=== PATIENT | female | born 1960 | race Caucasian/White ===

== ENCOUNTER 2019-06-29 09:22 | Emergency (ER) | payer OTHER ==
--- OUTSIDE RECORDS SUMMARY | 2019-06-29 09:49 | XMS REPORT | Continuity of Care Document ---
:1960 External Reference #:[id number] Author Name CRISTIAN Black (transmitted by agent of provider Rajinder Valencia) Address [address] [place] [address] Care Team Providers Name Role Phone Lyle Latham MD - Orthopaedic Care Team Information [facility] Rona Sodo RPA - Medical Care Team Information [employer] [phone] Jennifer Hong MD - Care Team Information [employer] [phone] Ophthalmology Problems Active Problems Provider Date Anxiety CRISTIAN Black Onset: 01/21/2019 History of malignant neoplasm of lung CRISTIAN Black Onset: 01/21/2019 Note: stage 4 Kidney stone CRISTIAN Black Onset: 04/30/2019 Note: (L) nonobstructing [CT 04/2019] Social History Type Date Description Comments Sex Unknown ETOH Use Denies alcohol use Tobacco Use Start: Unknown Light tobacco smoker (10 or fewer cigarettes/day) Recreational Drug Use Denies Drug Use Smoking Status Reviewed: 06/15/19 Light tobacco smoker (10 or fewer cigarettes/day) Exercise Type/Frequency Exercises rarely Allergies, Adverse Reactions, Alerts Active Allergies Reaction Severity Comments Date Alimta thrombocytopenia 04/01/2019 Amlodipine edema 04/01/2019 Inactive Allergies NKDA 04/01/2019 Medications Active Medications SIG Qnty Indications Ordering Date Provider Robitussin Cough & 10 ml by mouth 355ml Gera 06/15/2019 Chest Congestion DM every 4 hours as MD Iva Adult needed 20-400mg/20ML Liquid Amoxicillin/Clavulanat 1 Tab PO Q 12 H 20tabs J20.9 Gera 06/15/2019 e Potassium With Food MD Iva 875-125mg Tablets Loratadine 1 by mouth every 90tabs Gera 04/27/2019 10mg Tablets day for MD Iva cough/congestion Fluticasone Propionate 2 sprays to each 9.900ml J01.90 Gera 02/20/2019 Nasal [place] nare daily MD Iva 50mcg/Act Suspension Ondansetron HCL 1 tab by mouth 30tabs Gera 02/20/2019 8mg three times a MD Iva Tablets day as needed nausea Lorazepam Take 1 Tablet By 90tabs Gera 01/21/2019 1mg Tablets Mouth Three MD Iva Times Daily as Needed. Maximum Daily Dose Is 3 Citalopram 1 by mouth every 90tabs Gera 12/24/2018 Hydrobromide day MD Iva 20mg Tablets Bupropion 1 tab by mouth 90tabs Gera Hydrochloride ER (XL) every day MD Iva 300mg Tablets ER 24HR Folic Acid take one tablet 90tabs Gera 1mg Tablets (or cap) by MD Iva mouth daily Calcium 500+D Unknown [id number] Tablets Levothyroxine Sodium 1 and 1/2 tab by Unknown mouth every day 25mcg Tablets Opdivo q 3 months per Unknown 40mg/4ML Solution oncology History Medications Mucus Relief 1 tab by mouth 14tabs Gera Enrique, 04/01/2019 - twice a day for 7 04/02/2019 600mg Tablets ER days 12HR Cetirizine HCL 1 by mouth every 30tabs J30.9 Gera Enrique 2018 - evening for 04/27/2019 10mg Tablets allergies Neomycin-Polymyxin 4 drops to right 10ml H60.91 Gera Enrique 2018 - -HC ear four times a 04/01/2019 [id number] day Suspension Augmentin 1 tab by mouth 20tabs J01.90 Gera Enrique 02/20/2019 - twice a day with 03/05/2019 875-125mg Tablets food Immunizations Description No Information Available Vital Signs Date Vital Result Comment 06/15/2019 11:33am Height 63.5 inches 5'3.50" Weight 148.00 lb Heart Rate 98 /min BP Systolic Sitting 148 mmHg BP Diastolic Sitting 88 mmHg Body Temperature 98.1 F O2 % BldC Oximetry 96 % BMI (Body Mass Index) 25.8 kg/m2 04/01/2019 2:12pm Height 63.5 inches 5'3.50" Weight 154.25 lb Heart Rate 88 /min BP Systolic Sitting 116 mmHg BP Diastolic Sitting 72 mmHg O2 % BldC Oximetry 97 % BMI (Body Mass Index) 26.9 kg/m2 Results Description No Information Available Procedures Date Code Description Status 03/19/2019 [id number] Diabetic Retinal Eye Exam Completed Medical Devices Description No Information Available Encounters Type Date Location Provider Dx Diagnosis Office Visit 04/01/2019 [facility] [place], E03.9 Hypothyroidism, 2:00p PA unspecified J30.9 Allergic rhinitis, unspecified Office Visit 02/20/2019 9:30a [facility] Rona H60.91 Unspecified otitis [facility] [place], [place] externa, right ear J01.90 Acute sinusitis, unspecified Z85.118 Personal history of malignant neoplasm of bronchus and lung Assessments Date Code Description Provider 06/15/2019 J20.9 Acute bronchitis, unspecified Rona [place], PA 04/01/2019 E03.9 Hypothyroidism, unspecified Rona [place], PA 04/01/2019 J30.9 Allergic rhinitis, unspecified Rona [place], PA 02/20/2019 H60.91 Unspecified otitis externa, right ear Rona [place], PA 02/20/2019 J01.90 Acute sinusitis, unspecified Rona [place], PA 02/20/2019 Z85.118 Personal history of other malignant neoplasm Rona [place], PA of bronchus and Plan of Treatment 06/15/2019 - Rona [place], PAJ20.9 Acute bronchitis, unspecifiedNew Medication:Amoxicillin/Clavulanate Potassium 875-125 mg - 1 Tab PO Q 12 H With Food Functional Status Functional Condition Comment Date Status Glasses Active Partial upper dentures Active Mental Status Description No Information Available Referrals Refer to Reason for Referral Status Appt Date Ricardo Corbin MD Hypothyroidism Scheduled 05/11/[address] [place] [phone]
[2019-06-29 10:40] VITALS: BP 127/89
--- NOTE | 2019-06-29 11:01 | UC ---
General HPI - HPI Summary HPI Summary: pt is c/o a cough since 06/15/19. she states she got it from her who has the same. her primary care tx her with Augmentin x 1 week. the congestion resolved but she still has an ongoing NPC. she called her pcp again who prescribed another week of Augmentin at the same dose. she denies fever, chills, SOB and chest pain. she denies a hx of COPD and asthma. she has stage 4 lung CA that has improved with monthly chemo tx's.when asked, she notes her WBC counts have been good. - History of Current Complaint Chief Complaint: UCRespiratory Stated Complaint: CHEST CONGESTION Time Seen by Provider: 06/29/19 10:50 Hx Obtained From: Patient Pain Intensity: 0 Associated Signs & Symptoms: Negative: Diarrhea, Nausea, Vomiting - Allergy/Home Medications Allergies/Adverse Reactions: Allergies Allergy/AdvReac Type Severity Reaction Status Date / Time No Known Allergies Allergy Verified 06/29/19 10:30 Home Medications: Home Medications ALPRAZolam TAB* [Xanax TAB*] 1 mg DAILY PRN 06/29/19 [History Confirmed 06/29/19 ] Albuterol HFA INHALER* [Ventolin HFA Inhaler*] 2 puff Q6HR PRN 06/29/19 [ History Confirmed 06/29/19] Amoxicillin/Clavulanate TAB* [Augmentin TAB 875*] 1 tab BID 06/29/19 [History Confirmed 06/29/19] BuPROPion XL* [Bupropion XL*] 300 mg PO QAM 06/29/19 [History Confirmed 06/29/19 ] PMH/Surg Hx/FS Hx/Imm Hx Respiratory History: Other - Stage 4 lung cancer Psychological History: Anxiety - Surgical History Surgical History: Yes Surgery Procedure, Year, and Place: bone biopsy - Family History Known Family History: Positive: Non-Contributory - Social History Lives: With Family Alcohol Use: None Substance Use Type: None Smoking Status (MU): Light Every Day Tobacco Smoker Type: Cigarettes Amount Used/How Often: couple cigs - Immunization History Most Recent Influenza Vaccination: current Most Recent Pneumonia Vaccination: current Review of Systems All Other Systems Reviewed And Are Negative: No Constitutional: Negative: Fever, Chills, Fatigue ENT: Negative: Sore Throat, Ear Ache, Sinus Pain/Tenderness Respiratory: Positive: Cough. Negative: Shortness Of Breath Cardiovascular: Negative: Palpitations, Chest Pain Musculoskeletal: Negative: Calf Tenderness, Edema Physical Exam Triage Information Reviewed: Yes Appearance: Well-Appearing Vital Signs: Initial Vital Signs Temp 97.4 F 06/29/19 10:36 Pulse 93 06/29/19 10:36 Resp 16 06/29/19 10:36 BP 127/89 06/29/19 10:36 Pulse Ox 99 06/29/19 10:36 Vital Signs Reviewed: Yes Eyes: Positive: Conjunctiva Clear ENT: Positive: Pharynx normal, TMs normal. Negative: Nasal congestion, Nasal drainage Neck: Positive: Supple, Nontender, No Lymphadenopathy Respiratory: Positive: No respiratory distress, Decreased breath sounds. Negative: Crackles, Rhonchi, Wheezing Cardiovascular: Positive: RRR, No Murmur Abdomen Description: Positive: Nontender Musculoskeletal: Positive: No Edema Psychological: Positive: Age Appropriate Behavior Skin Exam: Normal Course/Dx - Course Course Of Treatment: pt is refusing a CXR and nebulizer-albuterol tx. I advised that this could be a pneumonia or even a result of her lung CA. Pt was quick to deny any chance of this being CA related. she was then anxious to leave citing she will just f/u with her pcp. she is A&Ox3. she is able to make decisions thus I must respect her wish to leave without a CXR and tx. I have advised she f/u with her oncology or pcp today. - Diagnoses Provider Diagnosis: Cough Discharge ED - Sign-Out/Discharge Documenting (check all that apply): Patient Departure All imaging exams completed and their final reports reviewed: No Studies - Discharge Plan Condition: Stable Disposition: HOME Patient Education Materials: Acute Cough (ED) Referrals: Rona Sood PA [Primary Care Provider] - Additional Instructions: FOLLOW UP WITH YOUR PRIMARY CARE OR YOUR CANCER DOCTOR TODAY. GO TO THE ER FOR ANY WORSENING. TAKE YOUR ALBUTEROL INHALER 2 PUFFS EVERY 6 HOURS - Billing Disposition and Condition Condition: STABLE Disposition: Home
== END 2019-06-29 11:07 | disposition home or self-care (01) ==
LOC: UCCORT 09:22
DX: R05 Cough (principal); C34.90 Malignant neoplasm of unspecified part of unspecified bronchus or lung; F41.9 Anxiety disorder, unspecified; F17.210 Nicotine dependence, cigarettes, uncomplicated; Z79.899 Other long term (current) drug therapy
CPT/HCPCS: 99201; G0463